=== PATIENT | female | born 1985 ===

== ENCOUNTER 2018-02-01 06:40 | Inpatient (IN) | payer OTHER ==
[2018-02-01] MEDS ORDERED: Penicillin G 5 Million Unit Vial IVPB ONE (09:51)
[2018-02-01] MEDS ORDERED: Lactated Ringer's 1,000 ML IV ONE (09:51)
[2018-02-01] MEDS ORDERED: Lactated Ringer's 1,000 ML IV SCH (10:00)
--- NOTE | 2018-02-01 10:34 | OBHP ---
Datetime: 02/01/2018 10:03 IP Adm Impression: Term, intrauterine ; No Active Labor; Ruptured Membranes IP Admit Plan: Admit to unit IP Admit Plan Other: Cervical ripening Admit Comment, IP Provider: This is a private patient of Dr. Norma Ozuna; covering for Dr. Ozuna Patient initially seen and evalauted 0825 hours; S/P ambulation with sanitary napkin x 1 hour 32 y.o. , LMP 05/18/17, JR 02/22/18, EGA 37 weeks, reports "water is coming out" at 0519 h ours, white/yellow. (+) Ctx, stronger and more regular 0519 hours, pain scale 2/10. (+) AFM; denies V B. care: Dr. 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 Deines h/o STIs, abnormal Pap, myomata, ovarian cysts PMH: denies {SH: denies NKDA Meds: PNV and iron - each once a day - last took pm 01/31/18 Soc Hx: denies tobacco, illicit drug or EtOH use. 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 Fam Hx: Mother alive 59. Father alive 60; both, no med issues. PGM - throat cancer P.E.: as above. WD in NAD. Awake, alert, oriented to time, person and place. Pleasant and cooperat tej. present - S/P ambulation, sanitary napkin is moist and blood-tinged Assessment: 32 y.o. P1, 37 weeks, probable high leak. D/W patient admission for delivery. R/B/C of prolonging including but not limited to infection and its affect of fetus and mother were discussed. Patient and agree for labor augmentation and delivery. Discussed cervical ripening ; pain management (epidural). Category 1 tracing. GBS unknown. Patient is clinically stble. Plan 1) Admit 2) NPO 3) IVFs 4) Continuous EFM 5) Admission labs, including 6) penicillin 7) Cervidil 8) Anticipate vaginal delivery Pelvic Type - PN: Adequate Extremities - PN: Normal Abdomen - PN: Normal Back - PN: Normal Breast - PN: Normal Lungs - PN: Normal Heart - PN: Normal Thyroid - PN: Not Done Neurologic - PN: Normal HEENT - PN: Normal General - PN: Normal FHR - Baseline A Provider: 140 Membranes, Provider: Intact Contraction Comments Provider: 6-8 Comments, ACOG Physical Exam: Abdomen: Gravid. Soft. Non tender in all quadrants. Fundal height 37 c m Perineum: wet; trickle of clear fluid noted at time of evaluation Spec: small amount of clear fluid noted in posterior vaginal vault Nitrazine equivocal Bedside sono: cephalic, anterior placenta; (+) FM; (+) FBM; SARAH 8.88 cm (MVP 4.75cm) Extremities: no calf tenderness All other systems reviewed and are negative IP Hx Assessment: records not available EGA AdmitDate IP: 37.0 Vital Signs Provider: Reviewed IP Indication for Induction: Not Applicable IP Chief Complaint: Suspected ruptured membranes NICHD Variability Prov Fetus A: Moderate 6-25bpm NICHD Accel Fetus A IP Provider: 15X15 FHR Category Provider Fetus A: Category I NICHD Decel Fetus A IP Provider: None Dilatation, Provider: 4-5 Effacement, Provider: 50 Station, Provider: -3 Genitourinary Exam: Normal DTRs - PN: Not Done
--- NOTE | 2018-02-01 10:46 | OBPN ---
Datetime: 02/01/2018 10:41 IP Procedures: Sterile Vag Exam IP Progress Plan: Cervical Ripening Membranes, Provider: Ruptured Contraction Comments Provider: 6 minutes FHR - Baseline A Provider: 135 Gestation - Est Wks by US: 37.0 IP Progress Note Comment: cervical exam - as above. Cervidil placed in posterior vaginal vault A/P: P1. 37 weeks, high leak/PROM - cervical ripening. Category 1 tracing. Clinically stable. Plan: 1) as above. 2) anticipate vaginal delivery Vital Signs Provider: Reviewed; Within Normal Limits NICHD Accel Fetus A IP Provider: 15X15 FHR Category Provider Fetus A: Category I NICHD Variability Prov Fetus A: Moderate 6-25bpm Dilatation, Provider: 5 Effacement, Provider: 50 Station, Provider: -3 NICHD Decel Fetus A IP Provider: None
[2018-02-01 10:53] LABS: BASO # 0.1 K/uL (0.0-0.2); BASO % 0.6 % (0.0-2.0); EOS # 0.2 K/uL (0.0-0.7); EOS % 2.4 % (0.0-4.0); HEMOGLOBIN 11.4 g/dL (11.0-16.0); LYMPH # 1.7 K/uL (1.0-4.3); LYMPH % 17.5 % (20.0-40.0); MEAN CELL VOLUME 89.3 fL (81.0-99.0); MEAN CORPUSCULAR HGB CONC 33.6 g/dL (33.0-37.0); MEAN PLATELET VOLUME 9.8 fL (7.2-11.7); MONO # 0.6 K/uL (0.0-0.8); MONO % 6.4 % (0.0-10.0); NEUT # 7.3 K/uL (1.8-7.0); NEUT % 73.1 % (50.0-75.0); RBC 3.8 Mil/uL (3.80-5.20); WHITE BLOOD COUNT 9.9 K/uL (4.8-10.8)
[2018-02-01 10:58] LABS: SQUAMOUS EPITHIAL 7 /hpf (0-5); URINE BACTERIA FEW (<OCC); URINE BILIRUBIN NEGATIVE (NEGATIVE); URINE BLOOD 2+ (NEGATIVE); URINE CLARITY Clear (Clear); URINE COLOR Yellow (YELLOW); URINE GLUCOSE (UA) NORMAL (Normal); URINE LEUKOCYTE ESTERASE 2+ Leu/uL (Negative); URINE PROTEIN NEGATIVE (NEGATIVE); URINE UROBILINOGEN NORMAL mg/dL (0.2-1.0)
[2018-02-01 11:08] LABS: ALBUMIN 3.1 g/dL (3.5-5.0); ALT/SGPT 22 U/L (9-52); AST/SGOT 38 U/L (14-36); BLOOD UREA NITROGEN 4 mg/dL (7-17); CALCIUM 8.7 mg/dl (8.6-10.4); GFR NON-AFRICAN AMERICAN > 60
[2018-02-01 11:16] LABS: BARBITURATES, UR NEGATIVE (NEGATIVE); BENZODIAZEPINES, UR NEGATIVE (NEGATIVE); OPIATES, UR NEGATIVE (NEGATIVE); PHENCYCLIDINE, UR NEGATIVE (NEGATIVE)
[2018-02-01 11:39] LABS: HEPATITIS B SURFACE AG Negative (NEGATIVE)
[2018-02-01 16:35] LABS: RAPID PLASMA REAGIN NONREACTIVE (NONREACTIVE)
[2018-02-01] MEDS ORDERED: Lidocaine 2% MPF (5 ml) Inj ONE ×2 (16:36→17:10)
--- NOTE | 2018-02-01 19:28 | OBDS ---
DELIVERY PERSONNEL Delivery Doctor: Boom You MD Scrub Nurse: Alisson Morris OBT Devulcanizer Loader: Erlinda Howard RN MATERNAL INFORMATION Delivery Anesthesia: Local Medications in Delivery: 2% lidocaine for tear, 20 mu pit in 1000LR Estimated Blood Loss (ml): 350 Placenta Cultured: No Maternal Complications: None Provider Comments: , live female, JOSEPH position; tight nuchal cord x 1 - doubly clamped and cut. I nfant's mouth and nose bulb-suctioned on perineum; placed on mother's abdomen. Spontaneous delivery of placenta - grossly intact; 3 vessel cord Cervix, vagina, perineum examined - lacerations as above; repaired as above. Hemostasis assured. Patient tolerated procedure; bonding with . Both in stable condition. EBL 350 mL LABOR SUMMARY EDC: 02/22/2018 00:00 No. Babies in Womb: 1 Attempted: No Labor Anesthesia: None LABOR INFORMATION Onset of Labor: 02/01/2018 05:30 Complete Dilatation: 02/01/2018 16:25 Cervical Ripening Agents: Cervidil Oxytocin: Augmentation Group B Beta Strep: Done, Result Unknown (Annotations: as per Dr. Ozuna) Antibiotics # of Doses: 2 Antibiotics Time of Last Dose: 1440 Steroids Given: None Reason Steroids Not Administered: Not Applicable MEMBRANES Membranes Rupture Method: Spontaneous Rupture of Membranes: 02/01/2018 05:30 Length of Rupture (hrs): 11.02 Amniotic Fluid Color: Clear Amniotic Fluid Amount: Small Amniotic Fluid Odor: Normal STAGES OF LABOR Stage 1 hrs: 10 Stage 1 min: 55 Stage 2 hrs: 0 Stage 2 min: 6 Stage 3 hrs: 0 Stage 3 min: 10 Total Time in Labor hrs: 11 Total Time in Labor min: 11 VAGINAL DELIVERY Episiotomy: None Laceration Extension: Second Degree Laceration Type: Perineal Other Laceration: first degree, posterior right side of midline - vaginal Laceration Repair: Yes Laceration Repair Note: 2-0 and 3-0 chromic - perineal 2-0 chromic - figure of eight x 1 - vaginal Patient tolerated procedure well Hemostasis assured Bonding with ; both, in stable condition Initial Vag Sponge Count: 10 Final Vag Sponge Count: 10 Initial Vag Sharps Count: 2 Final Vag Sharps Count: 2 Sponge Count Correct: Yes Sharps Count Correct: Yes Count Comment: Correct BABY A INFORMATION Infant Delivery Date/Time: 02/01/2018 16:31 Method of Delivery: Vaginal Born in Route : No : N/A Forceps: N/A Vacuum Extraction: N/A Shoulder Dystocia : No SHOULDER DYSTOCIA BABY A Delivery Date/Time: 02/01/2018 16:31 PRESENTATION/POSITION BABY A Presentation: Cephalic Cephalic Presentation: Vertex Vertex Position: Left Occipital Anterior Breech Presentation: N/A PLACENTA INFORMATION BABY A Placenta Delivery Time : 02/01/2018 16:41 Placenta Method of Delivery: Spontaneous Placenta Status: Delivered SCORES BABY A Heart Rate 1 min: >100 bpm Resp Effort 1 min: Good Cry Reflex Irritability 1 min: Cough or Sneeze or Pulls Away Muscle Tone 1 min: Active Motion Color 1 min: Body [place], Extremities Blue Resuscitation Effort 1 min: N/A SCORE 1 MIN: 9 Heart Rate 5 min: >100 bpm Resp Effort 5 min: Good Cry Reflex Irritability 5 min: Cough or Sneeze or Pulls Away Muscle Tone 5 min: Active Motion Color 5 min: Body [place], Extremities Blue Resuscitation Effort 5 min: N/A SCORE 5 MIN: 9 INFORMATION BABY A Gestational Age at Delivery: 37.0 Gestational Status: Term Infant Outcome : Liveborn Condition : Stable Infant Sex: Female IDENTIFICATION/MEDS BABY A ID Band Number: [id number] ID Band Location: Left Leg; Left Arm Sensor Applied: Yes Sensor Number: [id number] Vitamin K Given : Aquamephyton 1 mg IM Erythromycin Given: Given Both Eyes WEIGHT/LENGTH BABY A Birthweight (gms): 2885 Infant Weight (lb): 6 Infant Weight (oz): 6 Length Inches: 18.50 Length cms: 47.0 CORD INFORMATION BABY A No. Cord Vessels: 3 Nuchal Cord : Around Neck x1, Tight Cord Blood Taken: No Suction: Mouth; Nose ASSESSMENT BABY A Complications: None Physical Findings at Delivery: Within Normal Limits Infant Respirations: Appears Normal Art Specialist/ALS Called : No Infant Care By: Dipesh gilliland
[2018-02-01] MEDS ORDERED: Benzocaine/Menthol 20%-0.5% Topical Spray (60 ml) TOP PRN (22:51)
[2018-02-02 08:11] LABS: BASO % 0.2 % (0.0-2.0); EOS # 0.1 K/uL (0.0-0.7); EOS % 0.9 % (0.0-4.0); HEMOGLOBIN 10.5 g/dL (11.0-16.0); LYMPH # 1.9 K/uL (1.0-4.3); LYMPH % 13.7 % (20.0-40.0); MEAN CELL VOLUME 88.7 fL (81.0-99.0); MEAN CORPUSCULAR HEMOGLOBIN 29.6 pg (27.0-31.0); MEAN CORPUSCULAR HGB CONC 33.4 g/dL (33.0-37.0); MEAN PLATELET VOLUME 10.1 fL (7.2-11.7); MONO # 1.1 K/uL (0.0-0.8); MONO % 7.8 % (0.0-10.0); NEUT % 77.4 % (50.0-75.0); RBC 3.53 Mil/uL (3.80-5.20); RED CELL DISTRIBUTION WIDTH 14.2 % (11.5-14.5); WHITE BLOOD COUNT 14.2 K/uL (4.8-10.8)
[2018-02-02] MEDS: Multiple Vitamins Tab PO SCH (09:28)
--- NOTE | 2018-02-02 11:07 | OBPPN ---
Datetime: 02/02/2018 10:57 PP Pain Prov: Within normal limits PP Nausea Prov: Denies PP Breasts Prov: Not Done PP Heart Prov: Normal PP Lungs Prov: Normal PP Abdomen/Uterus Prov: Normal PP Lochia Prov: Normal PP Vulva/Perineum Prov: Normal PP CVA Tenderness Prov: Normal PP Extremities Prov: Normal PP C/S Incision Prov: Not Applicable PP Progress Prov: Normal PP Impression Prov: Normal progression PP Plan Prov: Continue present management PP Progress Note Prov: PPD # 1. Seen per Dr. Ozuna's request S/P without complications PP H_H Stable and Satisfactory condition and recovery Encourage to increase po water intake and ambulation Advance care Plan to discharge home in AM IP PP Procedures: None Vital Signs Provider PP: Reviewed; Within Normal Limits Vital Signs Provider Details PP: Fundus firm and non-tender
[2018-02-03 00:35] VITALS: O2SAT 98
--- NOTE | 2018-02-03 08:59 | OBDCSUM ---
Datetime: 02/03/2018 08:56 Discharged to, Provider: Home Follow up at, Provider: Dr Ozuna Disch Instr Activity: Normal activity Disch Instr Diet: Regular Discharge Instructions, Provider: Routine instructions given Discharge Diagnosis, Provider: Term Delivered Discharge Time: 02/03/2018 08:56 Follow up in weeks, Provider: 6 weeks Disch Referrals: None Contraception discussed, Prov: Yes Disch Activity Restrictions: No sexual activity; Nothing in vagina - [place], tampons, douche Contraception after Delivery: Not Planning to Use
--- NOTE | 2018-02-03 08:59 | OBPPN ---
Datetime: 02/03/2018 08:55 PP Pain Prov: Within normal limits PP Nausea Prov: Denies PP Flatus Prov: Yes PP Breasts Prov: Normal PP Heart Prov: Normal PP Lungs Prov: Normal PP Abdomen/Uterus Prov: Normal PP Lochia Prov: Normal PP Vulva/Perineum Prov: Normal PP CVA Tenderness Prov: Normal PP Extremities Prov: Normal PP Impression Prov: Normal progression PP Plan Prov: Continue present management PP Progress Note Prov: Pt seen adn examiend reprots doing well VSS PE see above a/p s/p ppd #2 dc home rot 6 weeks Vital Signs Provider PP: Reviewed; Within Normal Limits
--- NOTE | 2018-02-03 09:00 | OBDS ---
DELIVERY PERSONNEL Delivery Doctor: Boom You MD Scrub Nurse: Alisson Morris OBT Floral Assistant: Erlinda Howard RN MATERNAL INFORMATION Delivery Anesthesia: Local Medications in Delivery: 2% lidocaine for tear, 20 mu pit in 1000LR Estimated Blood Loss (ml): 350 Placenta Cultured: No Maternal Complications: None Provider Comments: , live female, JOSEPH position; tight nuchal cord x 1 - doubly clamped and cut. I nfant's mouth and nose bulb-suctioned on perineum; placed on mother's abdomen. Spontaneous delivery of placenta - grossly intact; 3 vessel cord Cervix, vagina, perineum examined - lacerations as above; repaired as above. Hemostasis assured. Patient tolerated procedure; bonding with . Both in stable condition. EBL 350 mL LABOR SUMMARY EDC: 02/22/2018 00:00 EDC: 02/22/2018 00:00 No. Babies in Womb: 1 Attempted: No Labor Anesthesia: None LABOR INFORMATION Onset of Labor: 02/01/2018 05:30 Complete Dilatation: 02/01/2018 16:25 Cervical Ripening Agents: Cervidil Cervical Ripening Agents: Cervidil Oxytocin: Augmentation Group B Beta Strep: Done, Result Unknown (Annotations: as per Dr. Ozuna) Antibiotics # of Doses: 2 Antibiotics Time of Last Dose: 1440 Steroids Given: None Reason Steroids Not Administered: Not Applicable MEMBRANES Membranes Rupture Method: Spontaneous Membranes Rupture Method: Spontaneous Rupture of Membranes: 02/01/2018 05:30 Length of Rupture (hrs): 11.02 Amniotic Fluid Color: Clear Amniotic Fluid Color: Clear Amniotic Fluid Amount: Small Amniotic Fluid Amount: Small Amniotic Fluid Odor: Normal Amniotic Fluid Odor: Normal STAGES OF LABOR Stage 1 hrs: 10 Stage 1 min: 55 Stage 2 hrs: 0 Stage 2 min: 6 Stage 3 hrs: 0 Stage 3 min: 10 Total Time in Labor hrs: 11 Total Time in Labor min: 11 VAGINAL DELIVERY Episiotomy: None Laceration Extension: Second Degree Laceration Type: Perineal Other Laceration: first degree, posterior right side of midline - vaginal Laceration Repair: Yes Laceration Repair Note: 2-0 and 3-0 chromic - perineal 2-0 chromic - figure of eight x 1 - vaginal Patient tolerated procedure well Hemostasis assured Bonding with ; both, in stable condition Initial Vag Sponge Count: 10 Final Vag Sponge Count: 10 Initial Vag Sharps Count: 2 Final Vag Sharps Count: 2 Sponge Count Correct: Yes Sharps Count Correct: Yes Count Comment: Correct BABY A INFORMATION Infant Delivery Date/Time: 02/01/2018 16:31 Method of Delivery: Vaginal Born in Route : No : N/A Forceps: N/A Vacuum Extraction: N/A Shoulder Dystocia : No SHOULDER DYSTOCIA BABY A Infant Delivery Date/Time: 02/01/2018 16:31 PRESENTATION/POSITION BABY A Presentation: Cephalic Cephalic Presentation: Vertex Vertex Position: Left Occipital Anterior Breech Presentation: N/A PLACENTA INFORMATION BABY A Placenta Delivery Time : 02/01/2018 16:41 Placenta Method of Delivery: Spontaneous Placenta Status: Delivered SCORES BABY A Heart Rate 1 min: >100 bpm Resp Effort 1 min: Good Cry Reflex Irritability 1 min: Cough or Sneeze or Pulls Away Muscle Tone 1 min: Active Motion Color 1 min: Body [place], Extremities Blue Resuscitation Effort 1 min: N/A SCORE 1 MIN: 9 Heart Rate 5 min: >100 bpm Resp Effort 5 min: Good Cry Reflex Irritability 5 min: Cough or Sneeze or Pulls Away Muscle Tone 5 min: Active Motion Color 5 min: Body [place], Extremities Blue Resuscitation Effort 5 min: N/A SCORE 5 MIN: 9 INFANT INFORMATION BABY A Gestational Age at Delivery: 37.0 Gestational Status: Term Infant Outcome : Liveborn Infant Condition : Stable Infant Sex: Female IDENTIFICATION/MEDS BABY A ID Band Number: [id number] ID Band Location: Left Leg; Left Arm Sensor Applied: Yes Sensor Number: [id number] Vitamin K Given : Aquamephyton 1 mg IM Erythromycin Given: Given Both Eyes WEIGHT/LENGTH BABY A Infant Birthweight (gms): 2885 Weight (lb): 6 Weight (oz): 6 Length Inches: 18.50 Length cms: 47.0 CORD INFORMATION BABY A No. Cord Vessels: 3 Nuchal Cord : Around Neck x1, Tight Cord Blood Taken: No Suction: Mouth; Nose ASSESSMENT BABY A Infant Complications: None Physical Findings at Delivery: Within Normal Limits Respirations: Appears Normal Mower Operator/ALS Called : No Infant Care By: Dipesh gilliland
[2018-02-03] MEDS: Multiple Vitamins Tab PO SCH (09:08)
[2018-02-03] MEDS ORDERED: Influenza Vaccine 60 MCG/0.5 ML SYR (3 yr & up) IM ONE (10:00)
[2018-02-03 18:39] VITALS: BP 106/64; PULSE 83; RESP 18; TEMP 97.4
== END 2018-02-03 13:10 | disposition home or self-care (01) | DRG 807 ==
LOC: C.EROB 06:40 → C.4D 09:36 → C.4M 18:08
PROVIDERS: ADMIT Obstetrics & Gynecology; ATTEND Obstetrics & Gynecology
PROC: 10E0XZZ Delivery of Products of Conception, External Approach (ICD-10-PCS; principal; 2018-02-01)
PROC: 0KQM0ZZ Repair Perineum Muscle, Open Approach (ICD-10-PCS; 2018-02-01)
DX: O69.1XX0 Labor and delivery complicated by cord around neck, with compression, not applicable or unspecified (principal); O70.1 Second degree perineal laceration during delivery; O99.02 Anemia complicating childbirth; D64.9 Anemia, unspecified; Z37.0 Single live birth

== ENCOUNTER 2018-02-07 12:41 | Emergency (ER) | payer OTHER ==
[2018-02-07 12:53] VITALS: RESP 18; TEMP 99.2; O2SAT 100
--- NOTE | 2018-02-07 15:42 | C.PDOC ---
History Of Present Illness 32 year old female 6 days with normal vaginal delivery presents to ED for evaluation of passing 2 blood clots today. Patient states she is concerned because this is the second day this is happening and she never experienced similar symptoms. Patient denies abdominal pain, dysuria or fever. Denies fever, chills, cough, shortness of breath, chest pain, nausea, vomiting. Time Seen by Provider: 02/07/18 13:28 Chief Complaint (Nursing): Female Genitourinary History Per: Patient History/Exam Limitations: no limitations Onset/Duration Of Symptoms: Days (2) Current Symptoms Are (Timing): Better Past Medical History Reviewed: Historical Data, Nursing Documentation, Vital Signs Vital Signs: Last Vital Signs Temp 99.2 F 02/07/18 12:51 Pulse 67 02/07/18 12:51 Resp 18 02/07/18 12:51 BP 118/77 02/07/18 12:51 Pulse Ox 100 02/07/18 12:51 - Medical History PMH: Denies: Depression, Diabetes, HTN Surgical History: No Surg Hx - [facility] Procedures DELIVERY OF PRODUCTS OF CONCEPTION, EXTERNAL APPROACH (02/01/18) REPAIR PERINEUM MUSCLE, OPEN APPROACH (02/01/18) Family History: States: No Known Family Hx - Social History Hx Alcohol Use: No Hx Substance Use: No - Immunization History Hx Tetanus Toxoid Vaccination: No Hx Influenza Vaccination: No Hx Pneumococcal Vaccination: No Review Of Systems Constitutional: Negative for: Fever, Chills Cardiovascular: Negative for: Chest Pain Respiratory: Negative for: Cough, Shortness of Breath Gastrointestinal: Negative for: Nausea, Vomiting Genitourinary: Positive for: Other (Passing two big clots.) Physical Exam - Physical Exam Appears: Non-toxic, No Acute Distress Skin: Warm, Dry Head: Atraumatic, Normacephalic Eye(s): bilateral: Normal Inspection Chest: Symmetrical Cardiovascular: Rhythm Regular Respiratory: Normal Breath Sounds Gastrointestinal/Abdominal: Soft, No Tenderness, Other (Uterus still enlarged, not actively bleeding, not in pain.) Neurological/Psych: Oriented x3 ED Course And Treatment O2 Sat by Pulse Oximetry: 100 (RA) Pulse Ox Interpretation: Normal - CT Scan/US pelvic US Other Rad Studies (CT/US): Read By Radiologist, Radiology Report Reviewed CT/US Interpretation: Accession No. : [id number]. Patient Name / ID : MIGUEL KAMINSKI / [id number]. Exam Date : 02/07/2018 14:59:40 ( Approved ). Study Comment : Sex / Age : F / 32Y. Creator : Cyril Luis MD. Dictator : Cyril Luis MD. Hemstitching Machine Operator : Photo Mask Pattern Generator : Cyril Luis MD. Approver2 : Report Date : 02/07/2018 17:14:27. My Comment : . Date of service: 02/07/2018. HISTORY: s/p NVD 6 days ago, passing clots, r/o retained pr. COMPARISON: None available. TECHNIQUE: Transabdominal sonographic evaluation of the pelvis performed. FINDINGS: UTERUS: Enlarged uterus measuring approximately 18.0 x 8.7 x 12.4 cm. Uterus is anteverted no fibroid or other mass lesion seen. ENDOMETRIUM: Endometrium measures approximately 1 cm mm in diameter. Minimal persistent vascularity however not felt to represent retained products of conception at this time. forest nursery worker consultation recommended. In addition, repeat ultrasound at short interval also recommended to assess for pentecostalism of normal endometrial thickness and vascularity.. CERVIX: No cervical abnormality identified. RIGHT OVARY: Measures 4.4 x 4.5 x 3.9 cm. No solid mass. Normal flow. . The follicular cysts are present largest measuring 2.4 x 1.8 x 2.2 cm. LEFT OVARY: Not visualized. FREE FLUID: No significant free fluid noted. OTHER FINDINGS: None. IMPRESSION: Slightly limited transabdominal ultrasound. Minimal increased endometrial of vascularity at the level of the uterine fundus however this is felt to be within the range of normal and not suggestive of denton retained products of conception. forest nursery worker consultation recommended. In addition, recommend repeat ultrasound at short interval to assess for pentecostalism of normal endometrial thickness and vascularity. Prominent of follicular cyst right ovary. Left ovary not visualized. Progress Note: Ordered ultrasound of pelvis to rule out retained products with negative results. Patient was d/c home with close OBGYN follow up. Disposition - Disposition Disposition: HOME/ ROUTINE Disposition Time: 17:42 Condition: STABLE Additional Instructions: Follow up with your OBGYN KRISTY. Recommended to repeat pelvic US in 1 week. Return to ED immediately if feel worse. Forms: [employer] (Pashto) - Clinical Impression Clinical Impression: Excessive bleeding after vaginal delivery - PA / ENVIRONMENTAL SERVICES MANAGER / Resident Statement MD/DO has reviewed & agrees with the documentation as recorded. - Scribe Statement The provider has reviewed the documentation as recorded by the Scribe Baljinder Sorensen All medical record entries made by the Earle were at my direction and personally dictated by me. I have reviewed the chart and agree that the record accurately reflects my personal performance of the history, physical exam, medical decision making, and the department course for this patient. I have also personally directed, reviewed, and agree with the discharge instructions and disposition.
--- NOTE | 2018-02-07 17:17 | US ---
Date of service: 02/07/2018 HISTORY: s/p NVD 6 days ago, passing clots, r/o retained pr COMPARISON: None available. TECHNIQUE: Transabdominal sonographic evaluation of the pelvis performed. FINDINGS: UTERUS: Enlarged uterus measuring approximately 18.0 x 8.7 x 12.4 cm. Uterus is anteverted no fibroid or other mass lesion seen. ENDOMETRIUM: Endometrium measures approximately 1 cm mm in diameter. Minimal persistent vascularity however not felt to represent retained products of conception at this time. research staff member consultation recommended. In addition, repeat ultrasound at short interval also recommended to assess for orthodoxy of normal endometrial thickness and vascularity.. CERVIX: No cervical abnormality identified. RIGHT OVARY: Measures 4.4 x 4.5 x 3.9 cm. No solid mass. Normal flow. . The follicular cysts are present largest measuring 2.4 x 1.8 x 2.2 cm. LEFT OVARY: Not visualized. FREE FLUID: No significant free fluid noted. OTHER FINDINGS: None. IMPRESSION: Slightly limited transabdominal ultrasound. Minimal increased endometrial of vascularity at the level of the uterine fundus however this is felt to be within the range of normal and not suggestive of denton retained products of conception. research staff member consultation recommended. In addition, recommend repeat ultrasound at short interval to assess for orthodoxy of normal endometrial thickness and vascularity Prominent of follicular cyst right ovary. Left ovary not visualized.
[2018-02-07 17:58] VITALS: BP 115/72; PULSE 76
== END 2018-02-07 18:15 | disposition home or self-care (01) ==
LOC: C.ER 12:41
DX: O72.1 Other immediate postpartum hemorrhage (principal)